=== PATIENT | female | born 1990 | race American Indian/Alaskan Native ===

== ENCOUNTER 2016-10-11 13:48 | Emergency (ER) | payer MEDICAID ==
[2016-10-11 13:48] VITALS: BMI 40.4
[2016-10-11 13:58] VITALS: RESP 18; TEMP 98.8
--- NOTE | 2016-10-11 14:29 | ED PDOC ---
Arrival/HPI - General Historian: Patient - History of Present Illness Symptom Onset: Gradual Symptom Course: Intermittent Quality: Other (sharp) Severity Level: 5 - General Chief Complaint: Chest Pain Time Seen by Provider: 10/11/16 14:19 - History of Present Illness Narrative History of Present Illness (Text): 10/11/16 14:26 This is a 26 year old female with no PMHx complaining of chest pain. Pain began yesterday and is localized along the middle of her chest. It is described as a 5 /10 sharp pain with no radiation. Pain was relieved yesterday by Tylenol but then returned this morning, prompting the patient to seek medical help. Patient not aware of any other exacerbating or relieving factors. Patient denies ever smoking and does not take any medications including OCPs. There is no recent travel history. (John Cole) Past Medical History - Infectious Disease Hx of Infectious Diseases: None - Tetanus Immunization Tetanus Immunization: Unknown - Reproductive Menopause: No - Past Medical History Past Medical History: No Previous - Psychiatric Hx Depression: No Hx Emotional Abuse: No Hx Physical Abuse: No Hx Substance Use: No - Past Surgical History Past Surgical History: No Previous - Anesthesia Hx Anesthesia: No - Suicidal Assessment Feels Threatened In Home Enviroment: No Family/Social History Family/Social History: No Known Family HX Smoking Status: Never Smoked Hx Alcohol Use: No Hx Substance Use: No Hx Substance Use Treatment: No Allergies/Home Meds Allergies/Adverse Reactions: Allergies No Known Allergies Allergy (Verified 10/11/16 15:47) Home Medications: Home Meds Medication Instructions Recorded Confirmed No Known Home Med 10/11/16 10/11/16 Review of Systems - Review of Systems Constitutional: Normal Eyes: Normal ENT: Normal Respiratory: Normal Cardiovascular: Chest Pain Gastrointestinal: Normal Genitourinary Female: Normal Musculoskeletal: Normal Skin: Normal Neurological: Headache (occasional), Dizziness (occasional) Endocrine: Normal Hemo/Lymphatic: Normal Psychiatric: Normal Physical Exam Vital Signs Reviewed: Yes Temperature: Afebrile Blood Pressure: Normal Pulse: Regular Respiratory Rate: Normal Appearance: Positive for: Comfortable Pain Distress: Mild Mental Status: Positive for: Alert and Oriented X 3 - Systems Exam Head: Present: Atraumatic, Normocephalic Pupils: Present: PERRL Extroacular Muscles: Present: EOMI Conjunctiva: Present: Normal Mouth: Present: Moist Mucous Membranes Neck: Present: Normal Range of Motion Respiratory/Chest: Present: Clear to Auscultation, Good Air Exchange. No: Accessory Muscle Use Cardiovascular: Present: Regular Rate and Rhythm, Normal S1, S2, Other ( reproducible chest wall tenderness with palpation along left medial portions of the ribcage). No: Murmurs Abdomen: Present: Normal Bowel Sounds. No: Tenderness Upper Extremity: Present: Normal Inspection, NORMAL PULSES Lower Extremity: Present: Normal Inspection, NORMAL PULSES. No: Edema, CALF TENDERNESS Neurological: Present: GCS=15, CN II-XII Intact, Speech Normal Skin: Present: Warm, Dry, Normal Color. No: Rashes Psychiatric: Present: Alert, Oriented x 3 Medical Decision Making ED Course and Treatment: 10/11/16 14:33 EKG showed NSR. Urine HCG--negative CXR PA/Lat view Toradol 60 mg IM PERC negative Chest PA and lateral FINDINGS: LUNGS:No active pulmonary disease. PLEURA:No significant pleural effusion identified. No pneumothorax apparent. CARDIOVASCULAR:Normal. IMPRESSION:No active disease. 10/11/16 15:09 10/11/16 16:27 (John Cole) 10/11/16 16:23 Patient seen by resident and evaluated by me. Patient has no risk factors for ACS and is perc negative. Cxray negative. EKG shows NSR at 86bpm with normal intervals and no ST changes. She has normal vitals. On reevaluation, patient reports pain is resolved and wants to go home. She was instructed on importance of following up with PMD and cardiology 10/11/16 16:55 (Eula Hercules) - RAD Interpretation Radiology Orders: 10/11/16 14:31 CHEST TWO VIEWS (PA/LAT) [RAD] Stat - Medication Orders Current Medication Orders: Discontinued Medications Ketorolac Tromethamine (Toradol) 60 mg IM STAT STA Stop: 10/11/16 14:32 Last Admin: 10/11/16 15:44 Dose: 60 mg Disposition/Present on Arrival - Present on Arrival Any Indicators Present on Arrival: No History of DVT/PE: No History of Uncontrolled Diabetes: No Urinary Catheter: No History of Decub. Ulcer: No History Surgical Site Infection Following: None - Disposition Have Diagnosis and Disposition been Completed?: Yes Disposition Time: 16:30 - Disposition Diagnosis: Chest pain, Chest pain, musculoskeletal Disposition: HOME/ ROUTINE Condition: STABLE Discharge Instructions (ExitCare): Chest Pain (ED) Additional Instructions: Follow up with your PMD within 2 days. Return to ED immediately with any worsening symptoms. Referrals: Sen Lambert MD [Primary Care Provider] - Follow up with primary Yusuf Man MD [Staff Provider] - Follow up with primary Forms: [facility] ([place]), WORK NOTE
--- NOTE | 2016-10-11 16:25 | RAD ---
HISTORY: chest pain COMPARISON: No prior. TECHNIQUE: Chest PA and lateral FINDINGS: LUNGS: No active pulmonary disease. PLEURA: No significant pleural effusion identified. No pneumothorax apparent. CARDIOVASCULAR: Normal. OSSEOUS STRUCTURES: No significant abnormalities. VISUALIZED UPPER ABDOMEN: Normal. OTHER FINDINGS: None. IMPRESSION: No active disease.
[2016-10-11 16:43] VITALS: BP 134/72; PULSE 82; O2SAT 98
--- NOTE | 2016-10-12 11:33 | CARD ---
APPROVED REPORT EKG Measurement Heart [id number] <Conclusion> Normal sinus rhythm Normal ECG
== END 2016-10-11 16:43 | disposition home or self-care (01) ==
LOC: ED 13:48
DX: R07.89 Other chest pain (principal)
CPT/HCPCS: 71020; 93005; 96372; 99283; J1885

== ENCOUNTER 2017-06-05 08:27 | Emergency (ER) | payer MEDICAID ==
[2017-06-05 08:29] VITALS: BMI 40.4
--- NOTE | 2017-06-05 09:07 | ED PDOC ---
Arrival/HPI - General Chief Complaint: Female Genitourinary Time Seen by Provider: 06/05/17 08:53 Historian: Patient - History of Present Illness Narrative History of Present Illness (Text): 06/05/17 09:04 pt p/w + 3 days onset of intermittent left flank/suprapubic pain, with pain radiating down to her left groin, at most pain is 8/10, lasting for hours; pt also noted dysuria, no hematuria/urinary frequency; pt denied vaginal discharge ; pt states no fever/chills/sweats, no cp/sob/palpitations, no mid-abd pain, no bowel changes, + good appetite, no lesions/rashes; no urinary/bowel changes, no fall/trauma/sick contact, no travel; pt denied vaginal bleeding; pt is here for further eval pt's without other complaints. 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 (at [facility]) hx of STI (Chlymadia, treated 1 year ago), last evaluation was Feb 2017 (and was negative) LMP: 05/18/2017 Time/Duration: < week (3 days) Symptom Onset: Sudden Symptom Course: Worsening Quality: Tightness, Cramping Severity Level: 8, Severe Activities at Onset: Rest Context: Home Past Medical History - Provider Review Nursing Documentation Reviewed: Yes - Travel History Have you recently traveled outside [place] w/in the past 3 mons?: No - Past History Past History: No Previous - Infectious Disease Hx of Infectious Diseases: None - Tetanus Immunization Tetanus Immunization: Unknown - Reproductive Menopause: No Currently : Unknown - Past Medical History Past Medical History: No Previous - Gastrointestinal Other/Comment: Gallstones while . - Psychiatric Hx Substance Use: No - Past Surgical History Past Surgical History: No Previous - Anesthesia Hx Anesthesia: No - Suicidal Assessment Feels Threatened In Home Enviroment: No Family/Social History - Physician Review Nursing Documentation Reviewed: Yes Family/Social History: No Known Family HX Smoking Status: Never Smoked Hx Alcohol Use: No Hx Substance Use: No Hx Substance Use Treatment: No Allergies/Home Meds Allergies/Adverse Reactions: Allergies No Known Allergies Allergy (Verified 06/05/17 08:42) Review of Systems - Review of Systems Constitutional: Normal Eyes: Normal ENT: Normal Respiratory: Normal Cardiovascular: Normal Gastrointestinal: Abdominal Pain, Other (left flank/groin pain) Genitourinary Female: Dysuria. absent: Frequency Musculoskeletal: Normal Skin: Normal Neurological: Normal Endocrine: Normal Hemo/Lymphatic: Normal Psychiatric: Normal Physical Exam Vital Signs Reviewed: Yes Vital Signs Temp Pulse Resp BP Pulse Ox 06/05/17 12:05 63 18 117/75 100 06/05/17 10:40 94 H 19 149/84 96 06/05/17 08:39 98.4 F 68 18 140/73 100 06/05/17 08:29 98.4 F 68 18 140/73 100 Temperature: Afebrile Blood Pressure: Hypertensive Pulse: Regular Respiratory Rate: Normal Appearance: Positive for: Well-Appearing, Non-Toxic, Uncomfortable, Other ( resting in bed, alert/awake, GCS = 15, oriented x 3, NAD, uncomfortable, cooperative) Pain Distress: None Mental Status: Positive for: Alert and Oriented X 3 - Systems Exam Head: Present: Atraumatic, Normocephalic Pupils: Present: PERRL, Other (no nystagmus, no photophobia, sclera anicteric, visual field intact b/l) Extroacular Muscles: Present: EOMI Conjunctiva: Present: Normal Ears: Present: Normal Mouth: Present: Moist Mucous Membranes, Normal Teeth, Other (no dysphonia, no drooling/stridor) Pharnyx: Present: Normal Nose (External): Present: Atraumatic Nose (Internal): Present: Normal Inspection Neck: Present: Normal Range of Motion, Trachea Midline. No: Meningeal Signs, MIDLINE TENDERNESS Respiratory/Chest: Present: Clear to Auscultation, Good Air Exchange, Other ( CTA b/l, no w/r/r). No: Respiratory Distress, Accessory Muscle Use Cardiovascular: Present: Regular Rate and Rhythm, Normal S1, S2. No: Murmurs Abdomen: Present: Normal Bowel Sounds, Other (well nourished/obese female, + mild left abd tenderness, no masses/rebound/guarding/rigidity, no rodriguez's sign , no mcburney's point tenderness) Back: Present: Normal Inspection, Other (no midline tenderness, no step off). No: CVA Tenderness, Midline Tenderness Upper Extremity: Present: Normal Inspection, Normal ROM, NORMAL PULSES, Neurovascularly Intact Lower Extremity: Present: Normal Inspection, NORMAL PULSES, Normal ROM, Neurovascularly Intact, Capillary Refill < 2 s, Other (+ ambulatory) Neurological: Present: GCS=15, CN II-XII Intact, Speech Normal Skin: Present: Warm, Normal Color, Other (cap refill < 1sec, no ulcerations, no petechiae, no rashes) Psychiatric: Present: Alert, Oriented x 3 Medical Decision Making ED Course and Treatment: 06/05/17 09:07 Impression: left flank pain, + dysuria i have consider all the differential diagnosis regarding pt's chief medical complaints/clinical findings, including but are not limited to: left flank pain , + dysuria A/P: left flank pain, + dysuria - labs - ua - ucg - CT vs U/S - supportive care - observe/reevaluation 06/05/17 12:37 pt is currently pain free pt is awaiting CT results [address] findings, will consult surgery Surgery resident contacted, made aware, will see patient 06/05/17 1320 surgery resident is at bedside, evaluated patient, consulted his attending, states pt's pain is unlikely due to appendix and CT does not indicate appendicitis; per surgery, pt does not have a surgical emergency; pt can be followed up with as outpt 1400 pt is awaiting U/S 06/05/17 15:26 pt remained comfortable pt denied any pain pt is NOT in any distress repeate FS ~ 202 pt is made aware of her medical results pt is encouraged fluid hydration pt is encouraged weight loss pt is encouraged outpt f/u pt will be discharged home Re-evaluation Time: 12:30 Reassessment Condition: Improved - Lab Interpretations Lab Results: 06/05/17 09:40 06/05/17 09:40 Lab Results 06/05/17 11:05: Serum Osmolality 297 06/05/17 10:35: POC Glucose (mg/dL) 234 H 06/05/17 09:40: Urine Color Yellow, Urine Appearance Clear, Urine pH 6.0, Ur Specific [place] 1.020, Urine Protein Negative, Urine Glucose (UA) >=1000, Urine Ketones Negative, Urine Blood Negative, Urine Nitrate Negative, Urine Bilirubin Negative, Urine Urobilinogen 0.2, Ur Leukocyte Esterase Negative 06/05/17 09:40: Sodium 136, Potassium 4.4, Chloride 100, Carbon Dioxide 25, Anion Gap 16, BUN 12, Creatinine 0.5 L, Est GFR ( Amer) > 60, Est GFR ( Non-Af Amer) > 60, Random Glucose 330 H*, Calcium 9.4, Total Bilirubin 0.3, AST 19, ALT 28, Alkaline Phosphatase 86, Total Protein 7.5, Albumin 3.9, Globulin 3.6, Albumin/Globulin Ratio 1.1, Lipase 90 06/05/17 09:40: WBC 5.9, RBC 4.74, Hgb 11.3 L, Hct 36.7, MCV 77.4 L, MCH 23.8 L , MCHC 30.8 L, RDW 15.7 H, Plt Count 237, MPV 11.3 H, Gran % 62.6, Lymph % (Auto ) 30.1, Ward % (Auto) 5.8, Eos % (Auto) 1.0 L, Baso % (Auto) 0.5, Gran # 3.66, Lymph # (Auto) 1.8, Ward # (Auto) 0.3, Eos # (Auto) 0.1, Baso # (Auto) 0.03 I have reviewed the lab results: Yes Interpretation: Abnormal lab values (+ elevated GLUC) - RAD Interpretation Narrative RAD Interpretations (Text): 06/05/17 12:52 PROCEDURE: CT abdomen pelvis dated 06/05/2017 HISTORY: Left flank pain COMPARISON: No prior TECHNIQUE: Contiguous axial images of the abdomen and pelvis performed following intravenous injection of approximately 100 cc Omnipaque 350 contrast material. Additional 2 dimensional sagittal and coronal reformats generated. Radiation dose: Total exam DLP = 1082.[address] exam was performed using one or more of the following dose reduction techniques: Automated exposure control, adjustment of the mA and/or kV according to patient size, and/or use of iterative reconstruction technique. FINDINGS: LOWER THORAX: Small hiatal hernia with the slight wall thickening of distal esophagus likely due to protrusion of gastric mucosa. Possibility of esophagitis not excluded. Heart size normal. No significant pericardial effusion. No evidence of basilar infiltrate effusion or pneumothorax. LIVER: Liver is enlarged measuring nearly 20 cm in CC dimension. Moderate diffuse fatty hepatic infiltration. No obvious hepatic mass or collection. Portal and splenic veins are opacified. Dilatation. GALLBLADDER AND BILE DUCTS: There are at least 3 discrete low-attenuation filling defects within the gallbladder lumen consistent with cholesterol stones. PANCREAS: Pancreas appears grossly unremarkable without masses collections or calcifications. No significant pancreatic ductal dilatation. SPLEEN: Spleen is mildly enlarged measuring over 13 cm in AP dimension . No splenic masses note or collections. Note is made of a few adjacent splenules. ADRENALS: Unremarkable. KIDNEYS AND URETERS: Unremarkable. No stone or hydronephrosis. BLADDER: Urinary bladder is physiologically distended. No evidence of intraluminal urinary bladder calculi. REPRODUCTIVE: Uterus unremarkable. Suspect small nabothian cyst. There is a large right adnexal cyst measuring approximately 4.5 x 3.6 cm. . There may be a small left adnexal cyst as well. APPENDIX: The appendix is best seen coronal image number [id number] and axial image number [id number]. Portions of the appendix exhibits minimal dilatation measuring up to approximately 7 mm however no infiltration changes are seen within the adjacent mesentery. Findings are equivocal for acute appendicitis appear clinical correlation with history, physical exam and laboratory values recommended. BOWEL: Evaluation of the bowel is somewhat limited due to the lack of oral contrast material. Stomach is incompletely distended. Visualized loops of small bowel exhibit normal contour and caliber. No evidence acute mechanical small bowel obstruction. Stool and air seen throughout the large bowel. No definitive evidence of abnormal mural wall thickening. PERITONEUM: Unremarkable. No fluid collection. No free air. LYMPH NODES: Unremarkable. No enlarged lymph nodes. VASCULATURE: Unremarkable. No aortic aneurysm. BONES: No fracture or destructive lesion. OTHER FINDINGS: None. IMPRESSION: Large right adnexal cyst. Suspect small left adnexal cyst. . Note that portions of the appendix measures up to 7 mm however no evidence of inflammatory changes seen within the adjacent mesenteric. Findings are equivocal for acute appendicitis. Clinic correlation with history, physical exam and laboratory values. Cholelithiasis. Hepatomegaly with moderate fatty hepatic infiltration. . Mild splenomegaly. 06/05/17 15:12 HISTORY: r/o ovarian torsion COMPARISON: The comparison made with prior study dated 03/24 16. TECHNIQUE: Transabdominal/transvaginal sonographic evaluation of pelvis performed. FINDINGS: UTERUS: Measures 10.0 x 4.5 x 4.9 cm. Normal in size and appearance. No fibroid or other mass lesion seen. ENDOMETRIUM: Thickened measuring approximately 2.1 cm. This is likely due to to pocket secretary assembler phase of the endometrial cycle however repeat ultrasound during the next menstrual cycle shortly following cessation of menses recommended for episcopal of normal endometrial thickness. CERVIX: Cervix measures 3.3 cm with a small nabothian cyst measuring approximately 5 mm. RIGHT OVARY: Measures 5.2 x 4.4 x 4.3 cm. Complex septated cyst measuring approximately 4.3 x 4.1 x 3.8. Normal flow. LEFT OVARY: Measures 4.3 x 3.6 x 3.5 cm. Small follicular cyst measures approximately 8 mm in greatest dimension. Normal flow. FREE FLUID: No significant free fluid noted. OTHER FINDINGS: None. IMPRESSION: Thickened endometrium likely due to pocket secretary assembler phase of the endometrial cycle however repeat pelvic ultrasound during the next menstrual cycle shortly following cessation of menses recommended to assess for episcopal of normal endometrial thickness. Small cervical nabothian cyst. Large complex septated cyst right ovary measuring 4.3 x 4.1 x 3.8 cm. Both ovaries exhibit arterial flow. . Followup pelvic ultrasound at to assess for resolution of the aforementioned cyst also recommended Radiology Orders: 06/05/17 10:27 ABD & PELVIS IV CONTRAST ONLY [CT] Stat 06/05/17 12:40 TRANSVAGINAL [US] Stat Ceo: Radiologist - Medication Orders Current Medication Orders: Sodium Chloride (Sodium Chloride 0.9%) 1,000 mls @ 100 mls/hr IV .Q10H [facility] Last Admin: 06/05/17 14:04 Dose: 100 mls/hr eMAR Start Stop Document 06/05/17 14:04 SRE (Rec: 06/05/17 14:04 SRE [id number]) Intravenous Solution Start Date 06/05/17 Start Time 14:04 Discontinued Medications Sodium Chloride (Sodium Chloride 0.9%) 1,000 mls @ 999 mls/hr IV .Q1H1M STA Stop: 06/05/17 11:26 Last Admin: 06/05/17 10:37 Dose: 999 mls/hr eMAR Start Stop Document 06/05/17 10:37 SRE (Rec: 06/05/17 10:39 SRE [id number]) Intravenous Solution Start Date 06/05/17 Start Time 10:38 End Date 06/05/17 End time 11:30 Total Infusion Time 52 Disposition/Present on Arrival - Present on Arrival Any Indicators Present on Arrival: No History of DVT/PE: No History of Uncontrolled Diabetes: No Urinary Catheter: No History of Decub. Ulcer: No History Surgical Site Infection Following: None - Disposition Have Diagnosis and Disposition been Completed?: Yes Diagnosis: Hyperglycemia, Left flank pain, Ovarian cyst, Gallstone Disposition: HOME/ ROUTINE Disposition Time: 15:13 Patient Plan: Discharge Patient Problems: Current Active Problems Problem Status Onset Hyperglycemia Acute Left flank pain Acute Ovarian cyst Acute Gallstone Acute Condition: STABLE Discharge Instructions (ExitCare): Ovarian Cysts, Gallstones, Hyperglycemia, Adult Print Language: AMHARIC Additional Instructions: Make sure to see your doctor in 1-2 days DRINK PLENTY OF FLUIDS take your medications as prescribed RETURN TO ED IF worse pain, cant breath, persistent vomiting, high fever >101- 102 for hours, altered behavior, slurr speech, facial changes, focal weakness ( arm/leg or both), unable to urinate, heavy/persistent bleeding, passing out, chest pain, or other medical emergencies Prescriptions: Ibuprofen [Motrin] 600 mg PO QID PRN #30 tab PRN Reason: Pain, Mild (1-3) traMADol [Ultram] 50 mg PO BID PRN #10 tab PRN Reason: Pain, Severe (8-10) Referrals: Pau May MD [Primary Care Provider] - Follow up with primary Juan Fermin DO [Staff Provider] - Follow up with primary Rah Bravo MD [Staff Provider] - Follow up with primary Forms: [employer] [place] ([place]), WORK NOTE
[2017-06-05 10:00] LABS: URINE BILIRUBIN NEGATIVE (NEGATIVE); URINE BLOOD NEGATIVE (NEGATIVE); URINE GLUCOSE (UA) >=1000 mg/dL (NEGATIVE); URINE PROTEIN NEGATIVE mg/dL (<30 mg/dL); URINE UROBILINOGEN 0.2 E.U./dL (<1 E.U./dL)
[2017-06-05 10:02] LABS: BASO # 0.03 K/mm3 (0.0-2.0); BASO % 0.5 % (0.0-3.0); EOS # 0.1 (0.0-0.7); GRAN # 3.66 (1.4-6.5); GRAN % 62.6 % (50.0-68.0); HEMOGLOBIN 11.3 g/dL (12.0-16.0); LYMPH # 1.8 (1.2-3.4); LYMPH % 30.1 % (22.0-35.0); MEAN CELL VOLUME 77.4 fl (80.0-105.0); MEAN CORPUSCULAR HEMOGLOBIN 23.8 pg (25.0-35.0); MEAN CORPUSCULAR HGB CONC 30.8 g/dl (31.0-37.0); MEAN PLATELET VOLUME 11.3 fl (7.0-11.0); MONO # 0.3 (0.1-0.6); MONO % 5.8 % (1.0-6.0); RBC 4.74 10^6/uL (3.5-6.1); RED CELL DISTRIBUTION WIDTH 15.7 % (11.5-14.5); WHITE BLOOD COUNT 5.9 10^3/ul (4.5-11.0)
[2017-06-05 10:05] LABS: URINE APPEARANCE CLEAR (CLEAR); URINE COLOR YELLOW (YELLOW); URINE LEUKOCYTE ESTERASE NEGATIVE Leu/uL (NEGATIVE)
[2017-06-05 10:12] LABS: ALB/GLOB RATIO 1.1 (1.1-1.8); ALBUMIN 3.9 g/dL (3.0-4.8); ALT/SGPT 28 U/L (7-56); AST/SGOT 19 U/L (14-36); BLOOD UREA NITROGEN 12 mg/dL (7-21); CALCIUM 9.4 mg/dL (8.4-10.5); GFR AFRICAN-AMERICAN > 60; GFR NON-AFRICAN AMERICAN > 60; LIPASE 90 U/L (23-300)
[2017-06-05] MEDS ORDERED: Sodium Chloride 0.9% 1,000 ML IV STA (10:26)
[2017-06-05] MEDS ORDERED: Iohexol 350 MG/100 ML VIAL ONE (10:34)
[2017-06-05 12:05] VITALS: RESP 18
--- NOTE | 2017-06-05 12:35 | CT ---
PROCEDURE: CT abdomen pelvis dated 06/05/2017 HISTORY: Left flank pain COMPARISON: No prior TECHNIQUE: Contiguous axial images of the abdomen and pelvis performed following intravenous injection of approximately 100 cc Omnipaque 350 contrast material. Additional 2 dimensional sagittal and coronal reformats generated. Radiation dose: Total exam DLP = 1082.[address] exam was performed using one or more of the following dose reduction techniques: Automated exposure control, adjustment of the mA and/or kV according to patient size, and/or use of iterative reconstruction technique. FINDINGS: LOWER THORAX: Small hiatal hernia with the slight wall thickening of distal esophagus likely due to protrusion of gastric mucosa. Possibility of esophagitis not excluded. Heart size normal. No significant pericardial effusion. No evidence of basilar infiltrate effusion or pneumothorax. LIVER: Liver is enlarged measuring nearly 20 cm in CC dimension. Moderate diffuse fatty hepatic infiltration. No obvious hepatic mass or collection. Portal and splenic veins are opacified. Dilatation. GALLBLADDER AND BILE DUCTS: There are at least 3 discrete low-attenuation filling defects within the gallbladder lumen consistent with cholesterol stones. PANCREAS: Pancreas appears grossly unremarkable without masses collections or calcifications. No significant pancreatic ductal dilatation. SPLEEN: Spleen is mildly enlarged measuring over 13 cm in AP dimension . No splenic masses note or collections. Note is made of a few adjacent splenules. ADRENALS: Unremarkable. KIDNEYS AND URETERS: Unremarkable. No stone or hydronephrosis. BLADDER: Urinary bladder is physiologically distended. No evidence of intraluminal urinary bladder calculi. REPRODUCTIVE: Uterus unremarkable. Suspect small nabothian cyst. There is a large right adnexal cyst measuring approximately 4.5 x 3.6 cm. . There may be a small left adnexal cyst as well. APPENDIX: The appendix is best seen coronal image number [id number] and axial image number [id number]. Portions of the appendix exhibits minimal dilatation measuring up to approximately 7 mm however no infiltration changes are seen within the adjacent mesentery. Findings are equivocal for acute appendicitis appear clinical correlation with history, physical exam and laboratory values recommended. BOWEL: Evaluation of the bowel is somewhat limited due to the lack of oral contrast material. Stomach is incompletely distended. Visualized loops of small bowel exhibit normal contour and caliber. No evidence acute mechanical small bowel obstruction. Stool and air seen throughout the large bowel. No definitive evidence of abnormal mural wall thickening. PERITONEUM: Unremarkable. No fluid collection. No free air. LYMPH NODES: Unremarkable. No enlarged lymph nodes. VASCULATURE: Unremarkable. No aortic aneurysm. BONES: No fracture or destructive lesion. OTHER FINDINGS: None. IMPRESSION: Large right adnexal cyst. Suspect small left adnexal cyst. . Note that portions of the appendix measures up to 7 mm however no evidence of inflammatory changes seen within the adjacent mesenteric. Findings are equivocal for acute appendicitis. Clinic correlation with history, physical exam and laboratory values. Cholelithiasis. Hepatomegaly with moderate fatty hepatic infiltration. . Mild splenomegaly.
--- NOTE | 2017-06-05 13:35 | CP.PCM.CON ---
History of Present Illness - History of Present Illness History of Present Illness: Surgery: Dr. Bravo CC: LLQ abd pain HPI: 26F w. no significant PMH presents to ED w. intermittent LLQ abd pain x 1 week. She states that the pain is stabbing/throbbing. She states that the pain starts in the LLQ and radiates to the groin. There are no alleviating/ aggravating factors and pain is unrelated to diet. She denies F/C. No N/V/D. She does report dysuria, but no change in urine color or odor. She denies vaginal bleeding / discharge. LMP was 4/4, described as abnormal with spotting. PMH: none PSH: none Meds: none NKDA Social: Social ETOH, no tobacco/drugs Fhx: non-contributory Review of Systems - Review of Systems All systems: reviewed and no additional remarkable complaints except (HPI) Past Patient History - Infectious Disease Hx of Infectious Diseases: None - Tetanus Immunizations Tetanus Immunization: Unknown - Past Social History Smoking Status: Never Smoked - GASTROINTESTINAL Other/Comment: Gallstones while . - PSYCHIATRIC Hx Substance Use: No - SURGICAL HISTORY Hx Surgeries: No - ANESTHESIA Hx Anesthesia: No Meds Allergies/Adverse Reactions: Allergies Allergy/AdvReac Type Severity Reaction Status Date / Time No Known Allergies Allergy Verified 06/05/17 08:42 - Medications Medications: Current Medications Sodium Chloride (Sodium Chloride 0.9%) 1,000 mls @ 100 mls/hr IV .Q10H JANAK Physical Exam - Constitutional Appears: Non-toxic, No Acute Distress - Head Exam Head Exam: ATRAUMATIC, NORMOCEPHALIC - Eye Exam Eye Exam: EOMI - ENT Exam ENT Exam: Mucous Membranes Moist - Neck Exam Neck exam: Positive for: Full Rom - Respiratory Exam Respiratory Exam: NORMAL BREATHING PATTERN. absent: Accessory Muscle Use, Respiratory Distress - Cardiovascular Exam Cardiovascular Exam: REGULAR RHYTHM - GI/Abdominal Exam GI & Abdominal Exam: Soft. absent: Distended, Firm, Guarding, Hernia, Rebound, Rigid, Tenderness Additional comments: No rodriguez sign, no psoas sign, no obturator sign - Extremities Exam Extremities exam: Negative for: calf tenderness, pedal edema - Back Exam Back exam: absent: CVA tenderness (L), CVA tenderness (R) - Neurological Exam Neurological exam: Alert, Oriented x3 - Psychiatric Exam Psychiatric exam: Normal Affect, Normal Mood - Skin Skin Exam: Dry, Normal Color, Warm Results - Vital Signs Recent Vital Signs: Last Vital Signs Temp 98.4 F 06/05/17 08:39 Pulse 63 06/05/17 12:05 Resp 18 06/05/17 12:05 BP 117/75 06/05/17 12:05 Pulse Ox 100 06/05/17 12:05 - Labs Result Diagrams: 06/05/17 09:40 06/05/17 09:40 Labs: Laboratory Results - last 24 hr 06/05/17 06/05/17 06/05/17 09:40 09:40 09:40 WBC 5.9 RBC 4.74 Hgb 11.3 L Hct 36.7 MCV 77.4 L MCH 23.8 L MCHC 30.8 L RDW 15.7 H Plt Count 237 MPV 11.3 H Gran % 62.6 Lymph % (Auto) 30.1 Atkinson % (Auto) 5.8 Eos % (Auto) 1.0 L Baso % (Auto) 0.5 Gran # 3.66 Lymph # (Auto) 1.8 Atkinson # (Auto) 0.3 Eos # (Auto) 0.1 Baso # (Auto) 0.03 Sodium 136 Potassium 4.4 Chloride 100 Carbon Dioxide 25 Anion Gap 16 BUN 12 Creatinine 0.5 L Est GFR ( Amer) > 60 Est GFR (Non-Af Amer) > 60 POC Glucose (mg/dL) Random Glucose 330 H* Serum Osmolality Calcium 9.4 Total Bilirubin 0.3 AST 19 ALT 28 Alkaline Phosphatase 86 Total Protein 7.5 Albumin 3.9 Globulin 3.6 Albumin/Globulin Ratio 1.1 Lipase 90 Urine Color Yellow Urine Appearance Clear Urine pH 6.0 Ur Specific [place] 1.020 Urine Protein Negative Urine Glucose (UA) >=1000 Urine Ketones Negative Urine Blood Negative Urine Nitrate Negative Urine Bilirubin Negative Urine Urobilinogen 0.2 Ur Leukocyte Esterase Negative 06/05/17 06/05/17 10:35 11:05 WBC RBC Hgb Hct MCV MCH MCHC RDW Plt Count MPV Gran % Lymph % (Auto) Atkinson % (Auto) Eos % (Auto) Baso % (Auto) Gran # Lymph # (Auto) Atkinson # (Auto) Eos # (Auto) Baso # (Auto) Sodium Potassium Chloride Carbon Dioxide Anion Gap BUN Creatinine Est GFR ( Amer) Est GFR (Non-Af Amer) POC Glucose (mg/dL) 234 H Random Glucose Serum Osmolality 297 Calcium Total Bilirubin AST ALT Alkaline Phosphatase Total Protein Albumin Globulin Albumin/Globulin Ratio Lipase Urine Color Urine Appearance Urine pH Ur Specific [place] Urine Protein Urine Glucose (UA) Urine Ketones Urine Blood Urine Nitrate Urine Bilirubin Urine Urobilinogen Ur Leukocyte Esterase - Imaging and Cardiology CT scan - abdomen Status: Image reviewed by me, Report reviewed by me Assessment & Plan - Assessment and Plan (Free Text) Assessment: 26F w. LLQ abd pain, likely MSK -CT reviewed -Appendix, gallbladder, and ovarian cyst are unlikely to be the source of pts current pain -recommend pt f/u w. [employer] for further evaluation of cysts -No plans for surgical intervention -pt clear for D/C from gen surg standpoint -discussed w. Dr. Lawrence Stoll PGY3
[2017-06-05] MEDS: Sodium Chloride 0.9% 1,000 ML IV SCH ×2 (13:55→14:04)
--- NOTE | 2017-06-05 15:11 | US ---
HISTORY: r/o ovarian torsion COMPARISON: The comparison made with prior study dated 03/24 16. TECHNIQUE: Transabdominal/transvaginal sonographic evaluation of pelvis performed. FINDINGS: UTERUS: Measures 10.0 x 4.5 x 4.9 cm. Normal in size and appearance. No fibroid or other mass lesion seen. ENDOMETRIUM: Thickened measuring approximately 2.1 cm. This is likely due to to loan secretary phase of the endometrial cycle however repeat ultrasound during the next menstrual cycle shortly following cessation of menses recommended for sikh of normal endometrial thickness. CERVIX: Cervix measures 3.3 cm with a small nabothian cyst measuring approximately 5 mm. RIGHT OVARY: Measures 5.2 x 4.4 x 4.3 cm. Complex septated cyst measuring approximately 4.3 x 4.1 x 3.8. Normal flow. LEFT OVARY: Measures 4.3 x 3.6 x 3.5 cm. Small follicular cyst measures approximately 8 mm in greatest dimension. Normal flow. FREE FLUID: No significant free fluid noted. OTHER FINDINGS: None. IMPRESSION: Thickened endometrium likely due to loan secretary phase of the endometrial cycle however repeat pelvic ultrasound during the next menstrual cycle shortly following cessation of menses recommended to assess for sikh of normal endometrial thickness. Small cervical nabothian cyst. Large complex septated cyst right ovary measuring 4.3 x 4.1 x 3.8 cm. Both ovaries exhibit arterial flow. . Followup pelvic ultrasound at to assess for resolution of the aforementioned cyst also recommended
[2017-06-05 15:31] VITALS: BP 129/76; PULSE 68; TEMP 98.2; O2SAT 98
== END 2017-06-05 15:31 | disposition home or self-care (01) ==
LOC: ED 08:27
DX: R73.9 Hyperglycemia, unspecified (principal); N83.201 Unspecified ovarian cyst, right side; K80.80 Other cholelithiasis without obstruction; R10.9 Unspecified abdominal pain
CPT/HCPCS: 74177; 76830; 80053; 81003; 82010; 82948; 83690; 83930; 85025; 96360; 99284; J7040; Q9967